=== PATIENT | male | born 2005 | race Two or more races ===

== ENCOUNTER 2023-02-05 13:47 | Emergency (ER) | payer MEDICAID ==
[~2023-02-05] VITALS: Ht 172.7 cm; Wt 90.1 kg
--- NOTE | 2023-02-05 14:46 | NUR ---
I AGREE WITH THE ASSESSMENT DONE BY WALESKA FRANKLIN LVN.
[2023-02-05] MEDS ORDERED: iohexol 300mg/ml 100ml inj. ONE (15:07)
[2023-02-05] MEDS ORDERED: IBUP-1986 PO (16:51)
[2023-02-05] MEDS ORDERED: ibuprofen tablet 400 MG TABLET PO ONE (16:55)
[2023-02-05 17:08] VITALS: BP 116/60; PULSE 67; RESP 16; TEMP 97.8; O2SAT 100
== END 2023-02-05 17:10 | disposition home or self-care (01) ==
LOC: ER 13:49
DX: S13.4XXA Sprain of ligaments of cervical spine, initial encounter (principal); R07.89 Other chest pain; M54.50 Low back pain, unspecified; M25.511 Pain in right shoulder; M25.512 Pain in left shoulder; M62.838 Other muscle spasm; Z79.899 Other long term (current) drug therapy; W22.11XA Striking against or struck by driver side automobile airbag, initial encounter; Y93.89 Activity, other specified; Y92.89 Other specified places as the place of occurrence of the external cause; Y99.8 Other external cause status
CPT/HCPCS: 71260; 93005; 99285; J3490; Q9967

== ENCOUNTER 2024-07-27 13:52 | Emergency (ER) | payer MEDICAID ==
[~2024-07-27] VITALS: Ht 175.3 cm; Wt 98.7 kg
[~2024-07-27 13:52] MED LIST: IBUP-1986 PO
[2024-07-27 13:54] VITALS: BP 130/89; PULSE 88; RESP 16; O2SAT 99
--- NOTE | 2024-07-27 13:57 | Physician Documentation ---
History of Present Illness ~ Chief Complaint: Ear Pain Stated Complaint: EAR/ HEAD PAIN Time Seen by MD: 13:57 Primary Medical Doctor: none HPI This is a 19-year-old male who presents to the emergency department due to three days as left earache and headache. He denies any chills or fever. He denies any antibiotic allergies. Medication Reconciliation Allergies: Coded Allergies: No Known Allergies (Unverified , 02/05/23) Scheduled Amox Tr/Potassium Clavulanate (Augmentin 875-125 Tablet), 1 TAB PO Q12H Ibuprofen (Ibuprofen), 1 TAB PO Q8H Naproxen (Naproxen), 1 TAB PO Q12H Past Medical History Past Medical History: No Pertinent History Drug Use: none Lives In: Home Review of Systems ROS As stated above in the HPI, otherwise all systems are reviewed and negative. Physical Exam Vital Signs: Temperature: 98.6, Source: Oral, Heart Rate: 88, Respiratory Rate: 16, BP: 130/89, Pulse Oximetry: 99, Weight: 98.700 Oxygen Flow Rate: 0 Physical Exam General: Alert, no apparent distress. HEENT: PERRL, EOMI, no injection, moist mucous membranes. Both canals are clear, left TM erythematous and bulging. Some left side neck pain to palpation without obvious fluid collection. Slight tenderness to mastoid on left without redness or swelling present. Neck: Full range of motion. Respiratory: Lungs clear, no respiratory distress. Chest: No accessory muscle use. Cardiovascular: Regular rate and rhythm, no murmurs. Gastrointestinal: Soft, nontender, nondistended. Bowels sounds present. Extremities: Normal range of motion, no deformity. Neurologic: Oriented x4. Psychiatric: Normal mood and affect. Skin: Normal color, warm and dry. No edema, no ecchymosis. Progress Results/Orders Results/Orders Vital Signs 07/27/24 13:54 Temp 98.6 Pulse 88 Resp 16 B/P (MAP) 130/89 Pulse Ox 99 O2 Flow Rate 0 Medical Decision Making Ear Diff. Dx: Considerations: Include: Abrasion, Cerumen impaction, Foreign body, Otitis externa, Barotrauma, Otitis media, Perforation, Referred pain- sinusitis, Referred pain-TMJ syn. Additional Comment This is a well-appearing 19-year-old male who presents to the emergency department due to concerns for three days of left ear pain. He did have some slight tenderness over the left mastoid, but no redness. Slight tenderness was also found along the left side of the neck. Departure Time of Disposition: 14:01 Disposition: 01 HOME / SELF CARE / HOMELESS Impression: Primary Impression: Acute left otitis media Condition: Stable Discharge Instructions: Otitis Media, Adult Additional Instructions: Your left ear is infected. Take the antibiotics as prescribed. Use the naproxen as needed for pain. If you are not improved in the next couple of days, follow up with your primary care, go to urgent care, or return to this emergency department. Referrals: NO PRIMARY CARE PROVIDER (PCP) Prescriptions Naproxen (Naproxen) 500 Mg Tablet 1 TAB PO Q12H, #20 TAB Prov: JANELLE RAMIREZ NP 07/27/24 Amox Tr/Potassium Clavulanate (Augmentin 875-125 Tablet) 1 Each Tablet 1 TAB PO Q12H for 7 Days, #14 TAB Prov: JANELLE RAMIREZ NP 07/27/24 Education Educated: Patient Educated regarding: diagnosis, treatment, prognosis, need for follow up Signature Scribe Signature: no scribe Attestation: The note accurately reflects work and decisions made by me.Janelle Jang NP 07/27/24 14:04 JANELLE RAMIREZ NP Jul 27, 2024 13:57
[2024-07-27] MEDS ORDERED: NAPR-56 PO (14:02)
[2024-07-27] MEDS ORDERED: AMOX-117 PO (14:02)
[2024-07-27 14:07] VITALS: TEMP 98.6
== END 2024-07-27 14:09 | disposition home or self-care (01) ==
LOC: ER 13:53
DX: H66.92 Otitis media, unspecified, left ear (principal); R51.9 Headache, unspecified; Z79.1 Long term (current) use of non-steroidal anti-inflammatories (NSAID); Z79.899 Other long term (current) drug therapy
CPT/HCPCS: 99283